=== PATIENT | male | born 1955 | race Caucasian/White ===

== ENCOUNTER 2018-11-24 05:55 | Day surgery (SDC) | payer MEDICARE ==
[2018-11-24] MEDS ORDERED: NACL 0.9% 500 ML 500 ML IV SCH (07:00)
[2018-11-24] MEDS ORDERED: ECOTRIN PO ONE (08:00)
[2018-11-24] MEDS ORDERED: CALAN ONE (08:18)
[2018-11-24] MEDS ORDERED: NITROGLYCERIN SYRINGE 3 ML ONE (08:18)
[2018-11-24] MEDS ORDERED: XYLOCAINE 2% INFILTRATI ONE (08:18)
[2018-11-24] MEDS ORDERED: HEPARIN/NS 5000 UNIT/500ML(CATH LAB) 1,000 ML IR ONE (08:18)
[2018-11-24] MEDS ORDERED: HEPARIN 10,000 UNITS/10 ML ONE (08:18)
[2018-11-24] MEDS ORDERED: SUBLIMAZE ONE (08:35)
[2018-11-24] MEDS ORDERED: VERSED ONE (08:35)
[2018-11-24] MEDS ORDERED: ULTRAM PO PRN (09:37)
--- NOTE | 2018-11-24 09:52 | Short Stay Summary ---
Short Stay Documentation Date of service: 11/24/18 - History H&P: obtained from office - Allergies and Medications Current Medications: Allergies No Known Allergies Allergy (Unverified 11/24/18 05:56) Home Medications Medication Instructions Recorded Confirmed Last Taken Type Aspirin EC [Aspirin Enteric Coated 81 mg PO HS 11/24/18 11/24/18 11/21/18 History TAB] 81mg Insulin Degludec/Liraglutide 30 units SQ DAILY 11/24/18 11/24/18 11/23/18 History [Xultophy 100 Unit-3.6MG/ml Pen] 30units Isosorbide Dinitrate [Isordil 5 mg PO BID 11/24/18 11/24/18 11/23/18 History Titradose] 5mg Levothyroxine [Synthroid] 100 mcg PO QAM 11/24/18 11/24/18 11/23/18 History 100mcg Lisinopril [Zestril TAB] 10 mg PO HS 11/24/18 11/24/18 11/23/18 History 10mg Rosuvastatin (Nf) [Crestor] 10 mg PO HS 11/24/18 11/24/18 11/23/18 History 10mg metFORMIN [Glucophage] 2 tab PO BID 11/24/18 11/24/18 11/22/18 History 1000mg Active Medications Sodium Chloride (Nacl 0.9% 500 Ml) 500 mls @ 50 mls/hr IV DIRECT JOVAN Stop: 11/24/18 16:59 Last Admin: 11/24/18 07:19 Dose: 50 mls/hr Documented by: Tramadol HCl (Ultram) 50 mg PO Q4H PRN PRN Reason: Pain, Moderate (4-6) - Brief post op/procedure progress note Date of procedure: 11/24/18 Pre-op diagnosis: sob and abnl stress Post-op diagnosis: other Procedure: see report Anesthesia: local Estimated blood loss: none Pathology: none - Disposition Condition at discharge: Good Disposition: [id number] TO HOME OR SELFCARE - Discharge Diagnoses (1) Diabetes 1.5, managed as type 1 Status: Chronic (2) Hyperlipemia, mixed Status: Chronic (3) Hypertension Status: Chronic Qualifiers: Hypertension type: essential hypertension Qualified Code(s): I10 - Essential (primary) hypertension (4) CAD (coronary artery disease) Status: Acute Qualifiers: Coronary Disease-Associated Artery/Lesion type: lower [place] artery Associated angina: with stable angina (5) Abnormal cardiovascular stress test Status: Acute Short Stay Discharge Plan Activity: advance as tolerated Diet: low fat, low salt, diabetic Special Instructions: hold Metformin (for two days) Follow up with: UTE VARGAS MD [Primary Care Provider] - 7 Days
[2018-11-24 12:37] VITALS: BP 126/68
--- NOTE | 2018-11-24 16:50 | Cardiac Catherization Report ---
PROCEDURE: Left heart catheterization. SURGEON: Ethan Spears MD CLINICAL INFORMATION: This is a 63-year-old male with history of diabetes, hypertension, hyperlipidemia, presents with shortness of breath. Cardiac PET reveals [id number] inferior wall ischemia, has been treated medically with nitrates. Symptoms have improved, but given the degree of ischemia, he is here for left heart catheterization. Done with moderate sedation, 1 mg Versed and 50 mcg fentanyl, 8:45 a.m. started, 9:20 a.m. that was 36 minutes moderate supervised sedation. DESCRIPTION OF PROCEDURE: Left heart catheterization was performed via right radial artery, sterile technique, local anesthesia, 6-[place] radial sheath inserted. Next, the left system engaged with JL3.5 catheter. Left main is a medium caliber vessel that is patent, then bifurcates into a small caliber LAD, the proximal has a 60% lesion. The rest of the vessel patent with mild luminal irregularities, small diagonal 1 is patent. Circumflex is a small to medium caliber vessel, patent, AV groove with mild luminal irregularities. OM1 is a small to medium caliber vessel that is patent with mild irregularities. RCA engaged with JR4 catheter. There is catheter dampening, which represents prior 70% lesion, diffuse disease, 50% proximal, then mid focal 90%, then distal to focal 90%-95% lesions, but then there is a extremely small PLV, which is a 1.5 mm vessel and the PDA, which a less than 2 mm vessel, has diffuse 80%. No real good landing zones for stenting of the vessel noted. The 5-[place] catheters were all taken over a guidewire, 6-[place] radial sheath was discontinued. Radial dressing applied. No hematoma, no bleeding. SUMMARY: Left main patent, LAD proximal 60%, circumflex patent, OM1 patent, but RCA had diffuse disease, proximal and mid 95% and distal ____ 95%, but small PDA, so no real good landing zones for stenting, so in view of small vessel disease, we will treat medically and discussed this in detail with the patient and the patient's . JOB# [id number] [place]
== END 2018-11-24 12:57 | disposition home or self-care (01) ==
LOC: CATHLABREC 05:55
PROVIDERS: ATTEND Internal Medicine
DX: I25.10 Atherosclerotic heart disease of native coronary artery without angina pectoris (principal); R06.02 Shortness of breath; I10 Essential (primary) hypertension; E78.2 Mixed hyperlipidemia; E11.39 Type 2 diabetes mellitus with other diabetic ophthalmic complication; E78.00 Pure hypercholesterolemia, unspecified; J45.909 Unspecified asthma, uncomplicated; M19.90 Unspecified osteoarthritis, unspecified site; E03.9 Hypothyroidism, unspecified; H40.9 Unspecified glaucoma; Z83.3 Family history of diabetes mellitus; Z79.899 Other long term (current) drug therapy; Z79.82 Long term (current) use of aspirin; Z80.8 Family history of malignant neoplasm of other organs or systems; Z79.84 Long term (current) use of oral hypoglycemic drugs; Z87.891 Personal history of nicotine dependence; Z79.4 Long term (current) use of insulin; Z82.49 Family history of ischemic heart disease and other diseases of the circulatory system
CPT/HCPCS: 82962; 93005; 93010; 93458; 99156; 99157; C1894; J1644; J2250; J3010; J7040; Q9967